=== PATIENT | female | born 1985 | race Caucasian/White ===

== ENCOUNTER 2024-05-08 16:05 | Emergency (ER) | payer OTHER ==
[~2024-05-08] VITALS: Ht 165.1 cm; Wt 91.0 kg
[2024-05-08 16:33] VITALS: TEMP 98.4; O2SAT 95
[2024-05-08 17:58] LABS: BASOPHILS % 0.5 % (0.0-2.0); EOSINOPHILS % 2.5 % (0.0-5.0); HEMATOCRIT. 38.9 % (36.0-48.0); HEMOGLOBIN. 13.6 g/dL (12.0-16.0); LYMPHOCYTES % 20.7 % (20.0-50.0); MEAN CORPUSCULAR HEMOGLOBIN 31.7 pg (28.0-32.0); MEAN CORPUSCULAR VOLUME 90.7 fL (81.0-99.0); MEAN PLATELET VOLUME 7.4 fl (7.4-10.4); MONOCYTES % 4.2 % (2.0-8.0); NEUTROPHILS % 72.1 % (40.0-76.0); PLATELET 296 x1000/uL (130-400); RED BLOOD CELL COUNT 4.29 mill/uL (4.2-5.4); RED CELL DISTRIBUTION WIDTH 12.8 % (11.6-14.6)
[2024-05-08 18:05] LABS: CHLORIDE 106 mEq/L (98-107); POTASSIUM 3.8 mEq/L (3.5-5.1); SODIUM 140 mEq/L (136-145)
[2024-05-08 18:06] LABS: CALCIUM 9.2 mg/dL (8.7-10.4); CARBON DIOXIDE 29 mEq/L (21-32)
[2024-05-08 18:11] LABS: CREATININE 0.7 mg/dL (0.6-1.0); GLUCOSE 120 mg/dL (70-105); UREA NITROGEN BLOOD 13 mg/dL (9-23)
[2024-05-08] MEDS ORDERED: ONDANSETRON 4MG ODT PO ONE (18:30)
[2024-05-08] MEDS ORDERED: ACETAMINOPHEN 325MG TABLET PO ONE (18:30)
[2024-05-08] MEDS ORDERED: MECLIZINE 25MG TABLET PO ONE (18:30)
[2024-05-08 19:09] LABS: INR 0.9; PROTHROMBIN TIME 10.3 sec (9.6-11.0)
[2024-05-08 19:11] LABS: HCG SCREEN NEGATIVE
[2024-05-08 19:16] LABS: ALANINE AMINOTRANSFERASE 26 IU/L (10-49); ASPARTATE AMINOTRANSFERASE 26 IU/L (<34)
[2024-05-08 19:17] LABS: ALBUMIN 4.3 g/dL (3.2-4.8); BILIRUBIN TOTAL 0.4 mg/dL (0.1-1.0); PROTEIN TOTAL 6.9 g/dL (6.0-8.3)
[2024-05-08 19:19] LABS: T4 FREE 0.87 ng/dL (0.89-1.76); THYROID STIMULATING HORMONE 1.35 uIU/mL (0.55-4.78)
[2024-05-08 19:37] LABS: CLARITY URINE CLEAR (CLEAR); COLOR URINE YELLOW (YELLOW); GLUCOSE URINE NEGATIVE (NEGATIVE); KETONES URINE NEGATIVE (NEGATIVE); LEUKOCYTE ESTERASE URINE TRACE (NEGATIVE); NITRITE URINE NEGATIVE (NEGATIVE); OCCULT BLOOD URINE NEGATIVE (NEGATIVE); PH URINE 6.5 (4.5-8.0); PROTEIN URINE NEGATIVE (NEGATIVE); SPECIFIC GRAVITY URINE 1.003 (1.005-1.030); UROBILINOGEN URINE 0.2 E.U./dL (0.2-1.0)
[2024-05-08 19:40] LABS: BILIRUBIN DIRECT < 0.1 mg/dL (<=3.0)
[2024-05-08 20:13] LABS: BACTERIA URINE TRACE; RBC URINE 0-2 /hpf (0-2); SQUAMOUS EPITHELIAL CELL URINE FEW /lpf (RARE/1+); WBC URINE 0-2 /hpf (0-2)
[2024-05-08 21:28] VITALS: BP 136/82; PULSE 73; RESP 18; O2SAT 98
[2024-05-08] MEDS ORDERED: MECL-299 MT (21:29)
[2024-05-08] MEDS: ONDANSETRON 4MG ODT PO NR (21:35)
[2024-05-08] MEDS: ACETAMINOPHEN 325MG TABLET PO NR (21:35)
[2024-05-08] MEDS: MECLIZINE 25MG TABLET PO NR (21:35)
== END 2024-05-08 21:44 | disposition home or self-care (01) ==
LOC: ER 16:05
DX: R42 Dizziness and giddiness (principal); E66.9 Obesity, unspecified; Z98.890 Other specified postprocedural states
CPT/HCPCS: 99284; 80076; 80048; 81003; 84703; 84439; 83690; 83735; 84100; 84443; 85025; 85610; 86850; 86900; 86901; 36415; 93005; J8597; Q0162

== ENCOUNTER 2024-08-04 09:28 | Emergency (ER) | payer OTHER ==
[~2024-08-04] VITALS: Ht 154.9 cm; Wt 89.0 kg
[~2024-08-04 09:28] MED LIST: MECL-299 MT
[2024-08-04 09:34] VITALS: O2SAT 98
[2024-08-04 09:43] VITALS: BP 147/73; PULSE 70; RESP 16; TEMP 98.3; O2SAT 98
[2024-08-04 10:17] LABS: BASOPHILS % 0.4 % (0.0-2.0); EOSINOPHILS % 1.5 % (0.0-5.0); HEMATOCRIT. 38.8 % (36.0-48.0); HEMOGLOBIN. 13.7 g/dL (12.0-16.0); LYMPHOCYTES % 20.8 % (20.0-50.0); MEAN CORPUSCULAR HEMOGLOBIN 31.6 pg (28.0-32.0); MEAN CORPUSCULAR HGB CONC 35.2 g/dL (31.0-37.0); MEAN CORPUSCULAR VOLUME 89.8 fL (81.0-99.0); MEAN PLATELET VOLUME 7.3 fl (7.4-10.4); MONOCYTES % 3.6 % (2.0-8.0); NEUTROPHILS % 73.7 % (40.0-76.0); PLATELET 330 x1000/uL (130-400); RED BLOOD CELL COUNT 4.33 mill/uL (4.2-5.4); RED CELL DISTRIBUTION WIDTH 13.1 % (11.6-14.6); WHITE BLOOD COUNT 11.7 x1000/uL (4.5-11.0)
[2024-08-04 10:26] LABS: CARBON DIOXIDE 27 mEq/L (21-32); CHLORIDE 104 mEq/L (98-107); POTASSIUM 3.9 mEq/L (3.5-5.1); SODIUM 139 mEq/L (136-145)
[2024-08-04 10:27] LABS: CALCIUM 9.2 mg/dL (8.7-10.4)
[2024-08-04 10:31] LABS: CREATININE 0.6 mg/dL (0.6-1.0)
[2024-08-04 10:32] LABS: GLUCOSE 129 mg/dL (70-105); UREA NITROGEN BLOOD 11 mg/dL (9-23)
[2024-08-04 10:33] LABS: ALANINE AMINOTRANSFERASE 15 IU/L (10-49)
[2024-08-04 10:34] LABS: ALBUMIN 4.3 g/dL (3.2-4.8); ASPARTATE AMINOTRANSFERASE 17 IU/L (<34); BILIRUBIN DIRECT 0.1 mg/dL (<=3.0); BILIRUBIN TOTAL 0.5 mg/dL (0.1-1.0)
[2024-08-04 11:00] LABS: TROPONIN I HIGH SENSITIVITY < 4 ng/L (3.0-34)
[2024-08-04 11:05] LABS: HCG SCREEN NEGATIVE
[2024-08-04] MEDS ORDERED: ONDA-239 PO (11:14)
[2024-08-04] MEDS: MECLIZINE 25MG TABLET PO ONE (11:25)
[2024-08-04] MEDS: ONDANSETRON 4MG ODT PO ONE (11:26)
[2024-08-04] MEDS ORDERED: MECL-299 MT (11:37)
== END 2024-08-04 11:41 | disposition home or self-care (01) ==
LOC: ER 09:28
DX: R11.2 Nausea with vomiting, unspecified (principal); Z98.890 Other specified postprocedural states
CPT/HCPCS: 99283; 80048; 80076; 84703; 83690; 85025; 84484; 36415; J8597; Q0162